=== PATIENT | male | born 1970 | race Caucasian/White ===

== ENCOUNTER → 2018-10-09 10:07 | Outpatient (CLI) | payer BC | END | disposition home or self-care (01) | LOC: D.CT 10:07 | PROVIDERS: ATTEND Family Medicine | DX: I77.810 Thoracic aortic ectasia (principal) ==

== ENCOUNTER → 2018-11-08 08:49 | Outpatient (CLI) | payer BC ==
--- NOTE | 2018-11-11 14:34 | EC ---
PATIENT:SUNDAY BANEGAS DATE OF SERVICE: 11/08/18 SEX: M MEDICAL RECORD: [id number] DATE OF : 66 LOCATION:[facility] AGE OF PATIENT: 48 ADMISSION DATE: 11/08/18 REFERRING PHYSICIAN: INTERPRETING PHYSICIAN: ESTEBAN DAVIES MD ECHOCARDIOGRAM REPORT ECHO CHARGES 4 ECHO COMPLETE Date: 11/08/18 CLINICAL DIAGNOSIS: DYSPNEA ECHOCARDIOGRAPHIC MEASUREMENTS (adult normal given) AC root (d.<3.7cm) 4.0 cm LV Septum d (<1.2 cm> 1.3 cm Valve Excursion 2.0 cm LV Septum (systole) 1.5 cm Left Atria (s.<4.0cm> 4.3 cm LVPW d(<1.2cm) 1.5 cm RV (d.<2.3cm) 5.4 cm LVPW (sytole) 2.1 cm LV diastole(<5.6CM) 5.4 cm MV E-F(>70mm/sec) cm LV systole 3.7 cm LVOT Diameter 2.2 cm MV exc.(>10mm) 1.4 cm Est.ejection fraction (50-75%) % DOPPLER: LVIT cm/sec A 63.0 cm/sec E 84.0 cm/sec LA cm/sec RVSP 20 mmHg LVOT 103 cm/sec AOP1/2T m/s Asc. Ao 128 cm/sec RVOT 71 cm/sec RA cm/sec PA 114 cm/sec AV Gradient Peak 6.53 mmHg AV Mean 3.74 mmHg AV Area 2.8 cm MV Gradient Peak 3.51 mmHg MV Mean 1.13 mmHg MV Area cm COMMENTS: Family Development Specialist: Maik SINCLAIR Tube Pusher: 1 Dr. Davies TAPE# PACS Pericardial Effusion N DATE OF SERVICE: PROCEDURE: Echocardiogram. FINDINGS: 1. Left ventricular chamber size is within normal limits. Left ventricular systolic function is normal at 60%. 2. Left atrium is within normal limits. Right atrium and right ventricular chamber sizes are moderately dilated. 3. Valvular structures have normal structure and motion. ECHOCARDIOGRAM REPORT [id number] SUNDAY BANEGAS 4. Doppler interrogation reveals trace mitral regurgitation, mild tricuspid regurgitation, no other valvular insufficiency or stenosis. 5. No evidence of pericardial effusion or left ventricular thrombus. TRANSINT:[id number] Voice Confirmation ID: [id number] DOCUMENT ID: [id number] ESTEBAN DAVIES MD at 1434 CC: [id number] DICTATION DATE: 11/11/18 1025 EDUCATIONAL THERAPY TEACHER: 11/11/18 1207 DEP CLI 11/08/18 [place] [id number] [place] [id number]
--- NOTE | 2018-11-11 14:34 | ST ---
PATIENT:SUNDAY BANEGAS MEDICAL RECORD: [id number] SEX: M LOCATION:[facility] ORDER #: ADMISSION DATE: 11/08/18 AGE OF PATIENT: 48 REFERRING PHYSICIAN: INTERPRETING PHYSICIAN: ESTEBAN CANALES MD DATE OF SERVICE: 11/08/2018 INDICATIONS: Angina, shortness of breath, hypertension. He was exercised on a standard Smooth protocol for 10 minutes achieving greater than 85% max target heart rate response with 33 mCi of sestamibi injected at peak stress, 11 mCi used previously for rest images. FINDINGS: Gated SPECT reveals preserved ejection fraction at 54% with decreased thickening and brightening throughout the inferior segments. SPECT imaging: Cardiolite was used as myocardial perfusion agent. There is a mixed perfusion defect throughout the inferior and apical segments. This includes the basal, mid, apical, inferior segments as well as the apex itself. This is partially fixed, partially reversible. There is reversibility throughout the entire defect. The reversibility is moderate. The amount of myocardium involved is moderate. OVERALL IMPRESSION: This is an intermediate risk nuclear stress test with a large area of perfusion defect, partially fixed, partially reversible throughout the inferior and apical segments suggestive of multivessel coronary artery disease, previous inferior myocardial infarction, and ongoing ischemia continuing. TRANSINT:[id number] Voice Confirmation ID: [id number] DOCUMENT ID: [id number] ESTEBAN CANALES MD at 1434 CC: ROSHAN GUTIERREZ [id number] DICTATION DATE: 11/10/18 1235 MANAGER DATA: 11/11/18 0022 DEP CLI 11/08/18 [place] [id number] [place] [id number]
== END | disposition home or self-care (01) ==
LOC: D.HCCECHO 08:30
PROVIDERS: ATTEND Internal Medicine Interventional Cardiology
DX: R06.09 Other forms of dyspnea (principal)

== ENCOUNTER 2018-11-22 08:42 | Outpatient (CLI) | payer BC ==
[~2018-11-22] VITALS: Ht 182.9 cm; Wt 110.0 kg
--- NOTE | ~2018-11-22 | HEMODYNAMI ---
PATIENT:SUNDAY BANEGAS MEDICAL RECORD: [id number] : 66 LOCATION:[facility] ADMISSION DATE: 11/22/18 Generatedon:11/22/201812:41 Patient name: SUNDAY BANEGAS Patient #: [id number] SSN: [id number] : 1970 Date of study: 11/22/2018 Page: Of Hemodynamic Procedure Report Patient Data Patient Demographics Procedure consent was obtained First Name: SUNDAY Gender: Male Last Name: MAKENZIE : 1970 Patient #: [id number] Age: 48 year(s) Race: SSN: [id number] Additional ID: [id number] Contact details Address: [address] [place] [address] [place] State: [place] City: [place] Zip code: [address] Past Medical History Allergies Allergen Reaction Date Comments Reported Other allergy 11/22/2018 NO KNOWN ALLERGIES Admission Admission Data Admission Date: 11/22/2018 Admission Time: 8:42 Arrival Date: 11/22/2018 Arrival Time: 0:00 Admit Source: Other Insurance Payor: Private health insurance [facility] #: [id number] Height (in.): 72.05 BSA: 2.31 (m2) Height (cm.): 183 BMI: 32.85 (kg/m2) Weight (lbs.): 242.51 Weight (kg.): 110 Lab Results Lab Result Date: 11/22/2018 Lab Result Time: 0:00 Biochemistry Name Units Result Min Max BUN mg/dl 12 --(-*--)-- 7 18 Creatinine mg/dl 0.9 --(-*--)-- 0.6 1.3 eGFR ml/min 90 --(*---)-- 90 120 NONAFRICAN CBC Name Units Result Min Max Hemoglobin g/dl 16.2 --(--*-)-- 13.5 17.5 Procedure Procedure Types Cath Procedure Diagnostic Procedure LHC C w/Coronaries Sedation Charges Moderate Sedation up to 15 minutes Procedure Description Procedure Date Procedure Date: 11/22/2018 Procedure Start Time: 12:23 Procedure End Time: 12:37 Procedure Staff Name Function Pritesh Davies MD Performing Physician Ara Daniel RT Monitor Sushila Darling RT Monitor Betzaida Bell RN Nurse Deepthi Bates RT Scrub Indication Angina Procedure Data Cath Procedure Fluoroscopy Diagnostic fluoroscopy Total fluoroscopy Time: 4.5 time: 4.5 min min Diagnostic fluoroscopy Total fluoroscopy dose: 980 dose: 980 mGy mGy Contrast Material Contrast Material Type Amount (ml) Isovue 300 106 Entry Location Entry Primary Successful Side Size Upsize Upsize Entry Closure Multani ccessful Closure Location (Fr) 1 (Fr) 2 (Fr) Remarks Device Remarks Radial Right 6 Fr Mechanical artery Short Compression Estimated blood loss: 5 ml Diagnostic catheters Device Type Used For End Catheter Placement DIAGNOSTIC [place] 110cm 5 Procedure Fr catheter ([id number]) DIAGNOSTIC AR2 MOD 5 Fr Procedure catheter ([id number]) DIAGNOSTIC AL2 5Fr Procedure catheter ([id number]) Procedure Complications No complications Procedure Medications Medication Administration Route Dosage Oxygen etCO2 Nasal cannula 2 l/min Lidocaine 2% added to field 20 Heparin Flush Bag added to field 2 bags (1000units/500ml NS) 0.9% NaCl I.V. 100 ml/hr Radial Cocktail I.A. 1 syringe (Verapamil 2mg/Nitro 400mcg/Heparin 1500units) Versed I.V. 2 mg Fentanyl I.V. 100 mcg Versed I.V. 2 mg Fentanyl I.V. 100 mcg Hemodynamics Rest BSA: 2.31 (m2) HGB: 16.2 (g/dl) O2 Consumption: Estimated: 261.77 (ml/min) O2 Co nsumption indexed: Estimated:113.32 (ml/min/m) Heart Rate: 53 (bpm) Snapshots Pre Cath Intra NCS Post Cath Vital Signs Time Heart Resp SPO2 etCO2 NIBP (mmHg) Rhythm Pain Sedation Rate (ipm) (%) (mmHg) Status Level (bpm) 12:10:01 73 13 97 0 145/95(112) NSR 0 (11) 10(A) , No pain 12:14:25 60 14 94 19.5 123/87(105) NSR 0 (11) 10(A) , No pain 12:18:39 65 13 94 0 142/90(102) NSR 0 (11) 10(A) , No pain 12:23:02 74 14 94 0 135/87(99) NSR 0 (11) 10(A) , No pain 12:27:13 74 14 92 0 126/83(98) NSR 0 (11) 9(A) , No pain 12:31:27 78 24 94 21.8 132/85(114) NSR 0 (11) 10(A) , No pain 12:35:46 69 11 93 0 131/83(111) NSR 0 (11) 10(A) , No pain Medications Time Medication Route Dose Verified Delivered Reason Notes Effectiveness by by 12:05:27 Oxygen etCO2 2 l/min Pritesh Huston used for Nasal Keke Bell RN procedure cannula 12:05:36 Lidocaine 2% added 20ml Pritesh Jonas for local to vial Keke Davies MD anesthetic field 12:05:42 Heparin Flush added 2 bags Pritesh Jonas used for Bag to Keke Davies MD procedure (1000units/500ml field NS) 12:05:51 0.9% NaCl I.V. 100 Pritesh Huston Per ml/hr Keke Bell RN physician 12:20:15 Versed I.V. 2 mg Pritesh Huston for sedation Keke Bell RN 12:20:21 Fentanyl I.V. 100 mcg Pritesh Huston for sedation Keke Bell RN 12:25:24 Radial Cocktail I.A. 1 Pritesh Jonas for (Verapamil syringe Keke Davies MD vasodilation 2mg/Nitro 400mcg/Heparin 1500units) 12:25:29 Versed I.V. 2 mg Pritesh Hernandezie for sedation Keke Bell RN 12:25:33 Fentanyl I.V. 100 mcg Pritesh Huston for sedation Keke Bell RN Procedure Log Time Note 11:34:44 Informed consent obtained and on chart 11:43:01 Lab Result : eGFR NONAFRICAN 90 ml/min 11:43:01 Lab Result : Hemoglobin 16.2 g/dl 11:43:01 Lab Result : BUN 12 mg/dl 11:43:01 Lab Result : Creatinine 0.9 mg/dl 11:47:26 Arrival Date: 11/22/2018 12:00:00 AM 11:47:28 Admit Source: Other 11:47:37 Patient Height : 72.05 inches 11:47:41 Patient Weight : 242.51 lbs 11:48:19 Insurance Payor : Private health insurance 11:49:11 Indication : Angina 11:50:18 Ara Daniel RT(R) sent for patient. Start room use. 12:05:27 Oxygen 2 l/min etCO2 Nasal cannula was administered by Betzaida Bell RN; used for procedure; Verbal order read back and verified. 12:05:36 Lidocaine 2% 20ml vial added to field was administered by Pritesh Davies MD; for local anesthetic; Verbal order read back and verified. 12:05:42 Heparin Flush Bag (1000units/500ml NS) 2 bags added to field was administered by Pritesh Davies MD; used for procedure; Verbal order read back and verified. 12:05:51 0.9% NaCl 100 ml/hr I.V. was administered by Betzaida Bell RN; Per physician; Verbal order read back and verified. 12:08:12 ACC Patient presents with Stable Angina CCS Anginal Class 2--Slight limitation of ordinary activity. 12:08:15 Procedure Status Elective Heart Cath (OP). 12:08:34 Time tracking: Regular hours (M-F 7:00 - 5:00) 12:08:38 Plan of Care:Hemodynamics will remain stable., Cardiac rhythm will remain stable., Comfort level will be maintained., Respiratory function will remain adequate., Patient/ family verbilizes understanding of procedure., Procedure tolerated without complication., Recovers from procedure without complications.. 12:08:44 Patient received from Pre/Post Procedure Room to CCL 1 Alert and oriented. Tansferred to table in Supine position. 12:08:45 Warm blankets applied, and keenan hugger turned on for patient comfort. 12:08:46 Correct patient and procedure confirmed by team. 12:08:46 ECG and BP/O2 sat monitors applied to patient. 12:08:47 Vital chart was started 12:08:50 Baseline sample Acquired. 12:08:53 Baseline sample Acquired. 12:08:55 Baseline sample Acquired. 12:08:58 Baseline sample Acquired. 12:09:02 Rhythm: sinus rhythm 12:09:04 Full Disclosure recording started 12:09:08 H&P Date Dictated: 11/22/2018 Within 30 days and on chart., H&P Addendum completed by physician on day of procedure. (MUST COMPLETE FOR ALL OUTPATIENTS). 12:09:10 Pre-procedure instructions explained to patient. 12:09:11 Pre-op teaching completed and patient verbalized understanding. 12:09:19 Family in patients room. 12:09:20 Patient NPO since Midnight. 12:09:21 Is the patient allergic to Iodine/contrast media? No. 12:09:22 Was the patient premedicated? No 12:09:25 Is patient on blood thinner?No 12:09:27 Patient diabetic? No. 12:09:31 Previous problem with sedation/anesthesia? No ? 12:09:33 Snore? Yes 12:09:35 Sleep apnea? No 12:09:36 Deviated septum? No 12:09:37 Opens mouth fully? Yes 12:09:38 Sticks out tongue? Yes 12:09:40 Airway obstruction? No ? 12:09:46 Dentures? No ? 12:10:47 Pre procedure: right dorsailis pedis pulse 1+ Palpable, but thready & weak; easily obliterated 12:10:49 Pre procedure: left dorsailis pedis pulse 1+ Palpable, but thready & weak; easily obliterated 12:10:51 Patient pain scale 0/10 ?. 12:10:56 IV patent on arrival in left forearm with 0.9% NaCl at [facility]. 12:10:59 Lab results completed and on chart. 12:11:03 Right Radial & Right Groin area was prepped with chlora-prep and draped in sterile fashion 12:11:04 Alarms reviewed by R. N. 12:11:05 Sharps counted by scrub and verified by R.N. 12:18:26 ACC Patient presents with Stable Angina CCS Anginal Class 1--Ordinary physical activity does not cause angina, angina occurs with strenuos, rapid, or prolonged activity.. 12:18:34 ACCPatient has been prescribed/administered the following anti-anginal medication within the last 2 weeks: OLIVIA-Inhibitor 12:19:23 Patient allergic to Other allergyNO KNOWN ALLERGIES 12:19:45 Physician arrived 12:19:46 --------ALL STOP TIME OUT------ 12::47 Final Timeout: patient, procedure, and site verified with staff and physician. All members of the team are in agreement. 12:19:50 Right Radial & Right Groin site verified by team. 12:19:56 Fire Safety Assessment: A--An alcohol-based skin anteseptic being used preoperatively., C--Open oxygen or nitrous oxide is being used., D--An ESU, laser, or fiber-optic light is being used. 12:20:07 Physical assessment completed. ASA score P 2 - A patient with mild systemic disease as per Pritesh Davies MD. 12:20:14 1) 90+ Normal kidney functon but urine findings or structural abnormalities or genetic trait point to kidney disease. 12:20:15 Versed 2 mg I.V. was administered by Betzaida Bell RN; for sedation; Verbal order read back and verified. 12:20:20 Maximum allowable contrast dose (3.7 X eGFR X 0.75)250 ml. 12:20:21 Fentanyl 100 mcg I.V. was administered by Betzaida Bell RN; for sedation; Verbal order read back and verified. 12:20:27 Sedation plan: IV Moderate Sedation Medication:Versed, Fentanyl 12:20:38 Use device set Radial Dx or PCI 12:20:40 ACIST Syringe (74207) opened to sterile field. 12:20:40 Medline Cath Pack ([id number]) opened to sterile field. 12:20:41 Bag Decanter () opened to sterile field. 12:20:42 ACIST Hand Control (00362) opened to sterile field. 12:20:43 ACIST Manifold (81626) opened to sterile field. 12:20:43 Tegaderm 4 x 4 (1626W) opened to sterile field. 12:20:44 MBrace Wrist Support ([id number]) opened to sterile field. 12:20:48 EMERALD Guide Wire (441-843) opened to sterile field. 12:20:49 SHEATH 6FR RAIN (6002095) opened to sterile field. 12:20:58 Zero performed for pressure channel P1 12:22:52 Procedure started. 12:23:06 Local anesthetic to right radial artery with Lidocaine 2% by Pritesh Davies MD.INITIAL ACCESS ONLY 12:23:24 A 6 Fr Short sheath was inserted into the Right Radial artery 12:24:37 A DIAGNOSTIC [place] 110cm 5 Fr catheter (052584) was advanced over the wire and used for Procedure. 12:25:12 LV angiography performed. 12:25:24 Radial Cocktail (Verapamil 2mg/Nitro 400mcg/Heparin 1500units) 1 syringe I.A. was administered by Pritesh Davies MD; for vasodilation; Verbal order read back and verified. 12:: Versed 2 mg I.V. was administered by Betzaida Bell RN; for sedation; Verbal order read back and verified. 12::33 Fentanyl 100 mcg I.V. was administered by Betzaida Bell RN; for sedation; Verbal order read back and verified. 12::21 LV gram done using NAVARRETE 12::28 Injector settings: Ml/sec: 5, Volume: 15, 12::39 EF : 60 % 12::43 LCA angiography performed. 12::15 Injector settings: Ml/sec: 3, Volume: 5, 12:28:14 Catheter removed. 12:28:32 A DIAGNOSTIC AR2 MOD 5 Fr catheter (730334N) was advanced over the wire and used for Procedure. 12:30:50 Catheter removed. 12:31:45 A DIAGNOSTIC AL2 5Fr catheter (281535N) was advanced over the wire and used for Procedure. 12:32:22 RCA angiography performed. 12:32:29 ACCDominant side:Right 12:32:56 Injector settings: Ml/sec: 3, Volume: 5, 12:33:34 ZEPHYR REGULAR TR BAND (018490) opened to sterile field. 12:33:45 Procedure ended.(Physican Out) 12:33:57 Sheath removed intact; hemostasis achieved with Mechanical Compression to the Right Radial artery. 12:34:18 Fluoroscopy time 04.50 minutes. 12:34:26 Fluoroscopy dose: 980 mGy 12:34: Flurop Dose total: 980 12:34:37 Dose Area Product 11684 mGy/cm. 12:34:43 Contrast amount:Isovue 300 106ml. 12:34:46 Maximum allowable dose exceeded? No. 12:34:48 Sharps counted by scrub and verified by R.N. 12:34:54 Revloc band inflated with 8cc of air. 12:34:57 Insertion/operative site no bleeding no hematoma. 12:35:05 Post Procedure Pulses reassessed and unchanged 12:35:16 Post-procedure physical assessment completed. ASA score P 2 - A patient with mild systemic disease as per Pritesh Davies MD. 12:35:23 Post procedure rhythm: unchanged. 12:35:27 Estimated blood loss: 5 ml 12:35:30 Post procedure instruction explained to patient.Patient verbalizes understanding. 12:35:32 Patient needs reinforcement of post procedure teaching. 12:36:11 Procedure type changed to Cath procedure, Diagnostic procedure, LHC, [facility] w/Coronaries, Sedation Charges, Moderate Sedation up to 15 minutes 12:37:09 Procedure and supply charges have been captured, reviewed, submitted and are correct. 12:37:19 Procedure Complication : No complications 12:37:25 Vital chart was stopped 12:37:28 [facility] Findings: mild to moderate CAD (<70%) 12:37:33 Operative report dictated upon procedure completion. 12:37:34 See physician's report for complete and final results. 12:37:36 Report given to Pre/Post Procedure Room. 12:37:41 Patient transfered to Pre/Post Procedure Room with Stretcher. 12:37:45 Procedure ended. 12:37:45 Full Disclosure recording stopped 12:39:30 End room use (Document Last) Device Usage Item Name Manufacture Quantity Catalog Hospital Part Current Minima l Lot# / Number Charge Number Stock Stock Serial# Code ACIST Acist 1 87747 419172 648476 466232 20 Syringe Medical (21610) Systems Inc Medline Medline 1 [id number] 078366 11029 535188 5 Cath Pack ([id number]) Bag Microtek 1 640270 62195 301894 5 Decanter Medical Inc. () ACIST Hand Acist 1 31335 006002 001528 154007 5 Control Medical (13114) Systems Inc ACIST Acist 1 64034 055937 999427 927711 5 Manifold Medical (97013) Systems Inc Tegaderm 4 3M 1 1626W 556964 763616 315998 5 x 4 (1626W) MBrace Advanced 1 140-0250-00 133881 82305 386206 5 Wrist Vascular Support Dynamics (036705065) EMERALD Cardinal 1 126-069 592925 793512 615680 5 Guide Wire [employer] (629-621) SHEATH 6FR Cardinal 1 9769815 307686 4939735 414046 5 [facility] (4774375) DIAGNOSTIC Terumo 1 40-9919 462046 836407 885331 5 [place] 110cm 5 Fr catheter (117211) DIAGNOSTIC Cardinal 1 [id number] 591448 247840 773067 20 AR2 MOD 5 Health Fr catheter (751222T) DIAGNOSTIC Cardinal 1 [id number] 859312 308658 010219 15 AL2 5Fr Health catheter (411956Z) ZEPHYR Cardinal 1 001264 622837 0172927 142002 5 REGULAR TR Health BAND (333706) Signature Audit [place] Stage Time Signature Unsigned Intra-Procedure 11/22/2018 Sushila 12:40:09 PM Phong RT(R) (CV) Intra-Procedure 11/22/2018 Betzaida Bell RN 12:40:47 PM Intra-Procedure 11/22/2018 Pritesh Davies 12:41:15 PM [facility] [address] [place] [address]
[2018-11-22] MEDS ORDERED: LISINOPRIL20 MG PO (09:39)
[2018-11-22] MEDS ORDERED: FLUTICASONE PRO16 GM NASAL (09:39)
[2018-11-22] MEDS ORDERED: LEXAPRO10 MG PO (09:40)
[2018-11-22 09:48] VITALS: BP 152/90; Ht 182.9 cm; Wt 110.0 kg
[2018-11-22 10:11] LABS: BASOPHILS 0.3 % (0-2); EOSINOPHILS 1.4 % (0-7); HEMATOCRIT 46.1 % (42.0-54.0); HEMOGLOBIN 16.2 g/dL (13.5-17.5); IMMATURE GRANULOCYTES 0.3 % (0-5); LYMPHOCYTES 28.5 % (15-50); MCH 29.9 pg (26.0-34.0); MCHC 35.1 g/dL (31.0-37.0); MCV 85.1 fL (80.0-100.0); MEAN PLATELET VOLUME 9.2 fL (7.4-10.4); MONOCYTES 8.7 % (2-11); NEUTROPHILS 60.8 % (40-80); PLATELET COUNT 294 10x3/uL (130-400); RBC 5.42 10x6/uL (4.20-6.10); RDW 12.6 % (11.5-14.5); WBC 8.8 10x3/uL (4.8-10.8)
[2018-11-22 10:15] LABS: ALT (SGPT) 36 U/L (10-68); CALC OSMOLALITY 286 mosm/kg (275-300); CALCIUM 8.5 mg/dL (8.5-10.1); CARBON DIOXIDE 24.9 mmol/L (21.0-32.0); CHLORIDE - SERUM 108 mmol/L (98-107); CHOL - HDL RATIO 5.1 ratio (2.3-4.9); CHOLESTEROL, TOTAL 168 mg/dL (0-200); CREATININE - SERUM 0.9 mg/dL (0.6-1.3); GLUCOSE 95 mg/dL (74-106); HDL CHOLESTEROL 33 mg/dL (32-96); LDL CHOLESTEROL 115 mg/dL (0-100); LDL-HDL RATIO 3.5 ratio (1.5-3.5); POTASSIUM - SERUM 3.8 mmol/L (3.5-5.1); SODIUM 144 mmol/L (136-145); TRIGLYCERIDE 104 mg/dL (30-200); UREA NITROGEN 12 mg/dL (7-18); eGFR NON AFRICAN AMERICAN > 90 mL/min (90-120)
--- NOTE | 2018-11-22 12:45 | NUR ---
PT ARRIVED BY STRETCHER. PLACED ON MONITORS. ASSESSMENT COMPLETED. VSS. CALL LIGHT WITHIN REACH. FAMILY AT BEDSIDE.
--- NOTE | 2018-11-22 13:00 | NUR ---
RIGHT WRIST Z BAND IN PLACE. NO BLEEDING/HEMATOMA NOTED. CALL LIGHT WITHIN REACH. FAMILY AT BEDSIDE. NO NEEDS AT THIS TIME. PT DENIES NAUSEA/PAIN. RIGHT HAND CAP REFILL < 3 SECS
--- NOTE | 2018-11-22 13:30 | NUR ---
3cc OF AIR REMOVED FROM Z BAND. NO BLEEDING/HEMATOMA NOTED. CALL LIGHT WITHIN REACH. VSS. FAMILY AT BEDSIDE. PT SET UP WITH DRINK AND SANDWICH TRAY. DENIES NAUSEA/PAIN AT THIS TIME.
--- NOTE | 2018-11-22 13:45 | NUR ---
3cc OF AIR REMOVED FROM BAND. NO BLEEDING/HEMATOMA NOTED. CALL LIGHT WITHIN REACH. FAMILY AT BEDSIDE. PT EATING LUNCH. NO NEEDS AT THIS TIME. VSS.
--- NOTE | 2018-11-22 14:00 | NUR ---
3cc OF AIR REMOVED FROM Z BAND. TOLERATED WELL. NO BLEEDING/HEMATOMA NOTED. PIV D/C'D WITH CATH TIP INTACT. PT INSTRUCTED TO GET DRESSED. FAMILY AT BEDSIDE TO ASSIST.
--- NOTE | 2018-11-22 14:15 | NUR ---
DISCUSSED DISCHARGE INSTRUCTIONS WITH PT AND PT'S FAMILY. THEY VOICED UNDERSTANDING. Z BAND REMOVED AND DRESSING APPLIED. RIGHT WRIST BRACE IN PLACE. PT INSTRUCTED TO KEEP ON FOR 2 HOURS AFTER ARRIVAL HOME.
--- NOTE | 2018-11-22 14:30 | NUR ---
RIGHT WRIST DRESSING C/D/I. NO S/S OF HEMATOMA NOTED. PT AMBULATED TO RESTROOM. VOIDED WITHOUT DIFFICULTY. PT TAKEN OUT TO VEHICLE BY WHEELCHAIR. NO S/S OF DISTRESS NOTED. ALL BELONGINGS AND PAPERWORK IN HAND.
--- NOTE | 2018-11-25 11:10 | OP ---
PATIENT NAME: SUNDAY BANEGAS MEDICAL RECORD: [id number] :66 LOCATION:[facility] ADMISSION DATE: SURGEON: ESTEBAN CANALES MD DATE OF OPERATION: 11/22/2018 PROCEDURES: 1. Left heart catheterization. 2. Selective coronary angiography. 3. Left ventriculogram. INDICATION: Angina, abnormal nuclear stress test. PROCEDURE IN DETAIL: After informed consent was obtained and after a detailed description of risks, benefits as well as alternative therapies, the patient elected to proceed with angiogram and heart catheterization. The right radial area was prepped and draped in normal sterile fashion. Right radial artery was cannulated via modified Seldinger technique with placement of 5-Persian sheath. All catheters exchanged through this sheath. FINDINGS: Left ventriculogram was performed in standard 30-degree NAVARRETE view, reveals good cardiac wall motion, ejection fraction is 60%. SELECTIVE CORONARY ANGIOGRAPHY: Left main, left anterior descending, left circumflex, right coronary artery are all smooth-walled vessels with no angiographic evidence of coronary artery disease. OVERALL IMPRESSION: 1. No angiographic evidence of coronary artery disease. 2. Normal left heart pressures. 3. Normal left ventricular systolic function. At this time, stress test was false positive. Evaluate noncardiac etiology of chest discomfort. TRANSINT:[id number] Voice Confirmation ID: [id number] DOCUMENT ID: [id number] ESTEBAN CANALES MD at 1110 CC: [id number] DICTATION DATE: 11/22/18 1238 QUALITY MANAGEMENT COORDINATOR: 11/22/18 1322 DEP CLI 11/22/18 [place] [id number] [place] [id number]
== END 2018-11-22 14:30 | disposition home or self-care (01) ==
LOC: D.CATH 08:42
PROVIDERS: ATTEND Internal Medicine Interventional Cardiology
DX: R94.30 Abnormal result of cardiovascular function study, unspecified (principal); R06.02 Shortness of breath; I20.9 Angina pectoris, unspecified

== ENCOUNTER → 2018-12-31 13:25 | Outpatient (CLI) | payer BC ==
[2018-11-22 09:48] VITALS: BMI 32.9
[~2018-12-31 13:25] MED LIST: FLUTICASONE PRO16 GM NASAL; LEXAPRO10 MG PO; LISINOPRIL20 MG PO
== END | disposition home or self-care (01) ==
LOC: D.RT 13:25
PROVIDERS: ATTEND Internal Medicine Pulmonary Disease
DX: R05 Cough (principal)

== ENCOUNTER → 2019-10-22 07:16 | Outpatient (CLI) | payer BC ==
[2018-11-22 09:48] VITALS: BMI 32.9
== END | disposition home or self-care (01) ==
LOC: D.CT 10-21 10:00
PROVIDERS: ATTEND Thoracic Surgery (Cardiothoracic Vascular Surgery)
DX: I71.4 Abdominal aortic aneurysm, without rupture (principal)

== ENCOUNTER → 2020-04-19 07:51 | Outpatient (CLI) | payer BC ==
[2018-11-22 09:48] VITALS: BMI 32.9
== END | disposition home or self-care (01) ==
LOC: D.MRI 07:51
PROVIDERS: ATTEND Nurse Practitioner Family
DX: M54.16 Radiculopathy, lumbar region (principal)